=== PATIENT | male | born 1940 | race Caucasian/White ===

== ENCOUNTER 2017-04-03 07:29 | Inpatient (IN) | payer OTHER, BC ==
[~2017-04-03] VITALS: Ht 172.7 cm; Wt 79.4 kg
[~2017-04-03 07:29] MED LIST: ADVAIR 250/501 DISK PO; ASPIRIN81 M2 PO; AZOR 10/20 M1 TABLET PO; BLOOD PRESSURE PO; CIPRO500 MG PO; LEVAQUIN500 MG PO; MACROBID100 MG PO; NORVASC5 MG PO; PERCOCET 5/31 TABLET PO; PREDNISONE5 MG PO; PROAIR HFA8.5 GM IH; PROVENTIL2.5 MG/3 M IH; SPIRIVA1 INHALATI IH; THEO-DUR,THEOC300 MG PO
[2017-04-03 08:35] LABS: EOSINOPHIL (%) 0.1 % (0-5); HEMATOCRIT 42.2 % (38.0-50.0); IMMATURE GRANULOCYTE (%) 0.4 % (0.0-0.7); IMMATURE GRANULOCYTE COUNT 0.1 K/uL; INSTRUMENT ABS NEUTROPHIL CT 13.2 K/uL; LYMPHOCYTE COUNT 0.3 K/uL (1.0-2.8); MCHC 33.2 G/DL (30.0-36.0); MCV 84.4 FL (86-99); MEAN PLAT.VOLUME 10.7 uM^3 (9.0-12.4); MONOCYTE (%) 1.9 % (3-12); MONOCYTE COUNT 0.3 K/uL (0-0.8); NEUTROPHIL (%) 95.7 % (45-76); NEUTROPHIL COUNT 13.2 K/uL (1.8-6.4); PLATELET COUNT 232 K/uL (156-360); RBC DIS.WIDTH-CV 15.2 % (11.8-14.6); RBC DIS.WIDTH-SD 46.4 % (39-53); WHITE BLOOD COUNT 13.8 K/uL (4.1-10.2)
[2017-04-03 08:46] LABS: CHLORIDE 107 mEq/L (99-109); POTASSIUM 3.8 mEq/L (3.7-5.4); SODIUM 142 mEq/L (136-147)
[2017-04-03 08:47] LABS: GLUCOSE 112 mg/dL (70-99)
[2017-04-03 08:49] LABS: ANION GAP 10 MEQ/L (2-14)
[2017-04-03 08:51] LABS: GFR ESTIMATE (CALCULATED) > 59 mL/min/
[2017-04-03 08:52] LABS: UREA NITROGEN (BUN) 22 mg/dL (9-23)
[2017-04-03 08:55] LABS: TROP-I INTERPRETATION NEGATIVE; TROPONIN-I < 0.01 ng/mL (0.0-0.30)
[2017-04-03 09:39] LABS: ADD MIUA? YES; BILIRUBIN NEGATIVE; BLOOD SMALL; COLOR YELLOW ((YELLOW)); GLUCOSE (STRIP) NEGATIVE; KETONES NEGATIVE; LEUKOCYTES LARGE; NITRITE POSITIVE; PROTEIN (STRIP) NEGATIVE; SPECIFIC GRAVITY 1.012 (1.000-1.030); UROBILINOGEN 0.2 MG/DL (0.2-1.0)
[2017-04-03 09:52] LABS: BACTERIA 3+ /HPF; CALCIUM OXALATE CRYSTALS 1+ /HPF; EPITHELIAL CELLS RARE /HPF; MUCUS TRACE /LPF; UCUL ADDED? YES; WHITE BLOOD CELLS TNTC /HPF (0-5)
[2017-04-03] MEDS ORDERED: SPIRIVA1 INHALATI IH (12:05)
[2017-04-03 18:40] VITALS: BP 134/77
[2017-04-03 19:34] VITALS: BP 114/61
[2017-04-03 22:00] VITALS: BP 91/56; BP 97/65
[2017-04-03 23:00] VITALS: BP 90/55
[2017-04-03 23:59] LABS: METH RESISTANT S AUREUS PCR NEGATIVE (NEGATIVE)
[2017-04-04] VITALS (12 sets, daily range): BP systolic 83–120; BP diastolic 41–62
[2017-04-04 00:20] LABS: PROBE CHECK PASS; SPECIMEN PROCESSING CONTROL PASS
[2017-04-04 01:20] LABS: POINT-OF-CARE METER ID UU13113803
[2017-04-04 06:03] LABS: POINT-OF-CARE METER ID UU14174217
[2017-04-04 06:51] LABS: ANION GAP 8 MEQ/L (2-14); CHLORIDE 108 MEQ/L (99-109); HEMATOCRIT 36.1 % (38.0-50.0); MAGNESIUM 1.8 mg/dl (1.3-2.7); MCH 28.3 PG (29.0-34.0); POTASSIUM 4.1 MEQ/L (3.7-5.4); RBC DIS.WIDTH-CV 16.2 % (11.8-14.6); RBC DIS.WIDTH-SD 50.4 % (39-53); SAMPLE HEMOLYSIS CHECK 0; SAMPLE ICTERIC CHECK 0; SAMPLE LIPEMIA CHECK 0; SODIUM 142 MEQ/L (136-147); TOTAL BILIRUBIN 1.3 MG/DL (0.0-1.0); WHITE BLOOD COUNT 14.3 K/uL (4.1-10.2)
[2017-04-04 06:57] LABS: ALKALINE PHOSPHATASE 63 IU/L (3-129); GFR ESTIMATE (CALCULATED) 53 mL/min/; GLUCOSE 143 mg/dL (70-99); UREA NITROGEN (BUN) 32 mg/dL (9-23)
[2017-04-04 07:11] LABS: EOSINOPHIL (%) 0 % (0-5); IMMATURE GRANULOCYTE (%) 0.6 % (0.0-0.7); IMMATURE GRANULOCYTE COUNT 0.1 K/uL; INSTRUMENT ABS NEUTROPHIL CT 13.2 K/uL; LYMPHOCYTE COUNT 0.6 K/uL (1.0-2.8); MEAN PLAT.VOLUME 11.1 uM^3 (9.0-12.4); MONOCYTE (%) 2.9 % (3-12); MONOCYTE COUNT 0.4 K/uL (0-0.8); NEUTROPHIL (%) 92.5 % (45-76); NEUTROPHIL COUNT 13.2 K/uL (1.8-6.4)
[2017-04-04 07:12] LABS: PLAT.SUFFICIENCY DECREASED
[2017-04-04 07:13] LABS: PLATELET COUNT 148 K/uL (156-360)
[2017-04-04 12:21] LABS: POINT-OF-CARE METER ID UU13113731
[2017-04-05] VITALS: BP 110/57
[2017-04-05 04:00] VITALS: BP 119/58
[2017-04-05 07:21] LABS: POINT-OF-CARE METER ID UU14174217
[2017-04-05 08:00] VITALS: BP 129/78
[2017-04-05 12:00] VITALS: BP 150/81; BP 151/80
[2017-04-05 12:23] LABS: POINT-OF-CARE METER ID UU14174217
[2017-04-05 14:20] VITALS: BP 150/80
[2017-04-05 22:51] VITALS: BP 164/89
[2017-04-06 06:33] LABS: HEMATOCRIT 34.3 % (38.0-50.0); MCH 28.2 PG (29.0-34.0); MCHC 33.8 G/DL (30.0-36.0); MCV 83.5 FL (86-99); MEAN PLAT.VOLUME 11.3 uM^3 (9.0-12.4); PLATELET COUNT 156 K/uL (156-360); RBC DIS.WIDTH-SD 49.1 % (39-53); RED BLOOD COUNT 4.11 M/uL (4.00-5.50); WHITE BLOOD COUNT 9.1 K/uL (4.1-10.2)
[2017-04-06 07:03] LABS: ANION GAP 8 MEQ/L (2-14); CHLORIDE 109 MEQ/L (99-109); GFR ESTIMATE (CALCULATED) > 59 mL/min/; MAGNESIUM 1.6 mg/dl (1.3-2.7); POTASSIUM 3.7 MEQ/L (3.7-5.4); SAMPLE HEMOLYSIS CHECK 0; SAMPLE ICTERIC CHECK 0; SAMPLE LIPEMIA CHECK 0; SODIUM 144 MEQ/L (136-147); UREA NITROGEN (BUN) 24 mg/dL (9-23)
[2017-04-06 07:04] LABS: GLUCOSE 93 mg/dL (70-99)
[2017-04-06 07:21] VITALS: BP 156/91
[2017-04-06] MEDS ORDERED: TAMSULOSIN HCL0.4 MG PO (11:19)
[2017-04-06] MEDS ORDERED: KEFLEX500 MG PO (11:20)
== END 2017-04-06 13:20 | disposition home or self-care (01) | DRG 872 ==
LOC: EME 07:29 → 5EAST 10:58 → 4WEST 10:58 → EDOF 10:58 → 5EAST 14:56 → 4WEST 21:45 → 5EAST 04-05 14:01
PROVIDERS: Emergency Medicine; Internal Medicine; Obstetrics & Gynecology
DX: A41.51 Sepsis due to Escherichia coli [E. coli] (principal); N13.6 Pyonephrosis; J45.902 Unspecified asthma with status asthmaticus; J44.9 Chronic obstructive pulmonary disease, unspecified; I10 Essential (primary) hypertension; B96.20 Unspecified Escherichia coli [E. coli] as the cause of diseases classified elsewhere; E78.5 Hyperlipidemia, unspecified; N20.0 Calculus of kidney; I71.4 Abdominal aortic aneurysm, without rupture; R00.0 Tachycardia, unspecified; R32 Unspecified urinary incontinence; R73.9 Hyperglycemia, unspecified; K76.89 Other specified diseases of liver; Z85.46 Personal history of malignant neoplasm of prostate; Z87.891 Personal history of nicotine dependence; Z88.0 Allergy status to penicillin; Z09 Encounter for follow-up examination after completed treatment for conditions other than malignant neoplasm; Z88.2 Allergy status to sulfonamides; Z80.9 Family history of malignant neoplasm, unspecified
CPT/HCPCS: 71010; 74176; 80048; 80053; 81003; 82948; 83605; 83735; 84100; 84484; 85025; 85027; 87040; 87077; 87086; 87186; 87641; 87801; 93005; 94640; 94640 76; 94799; 99202; 99281; 99285; C1769; C1876; J0131; J0692; J1100; J1815; J1885; J2250; J2270; J2405; J3010; J7030; J7042; J7050; J7120; S0028

== ENCOUNTER 2017-10-25 10:33 | Inpatient (IN) | payer OTHER, BC ==
[~2017-10-25] VITALS: Ht 172.7 cm; Wt 66.8 kg
[~2017-10-25 10:33] MED LIST changes: +KEFLEX500 MG PO; +TAMSULOSIN HCL0.4 MG PO
[2017-10-25 10:57] LABS: HEMATOCRIT 44.2 % (38.0-50.0); MCH 27.2 PG (29.0-34.0); MCHC 32.8 G/DL (30.0-36.0); MCV 82.8 FL (86-99); MEAN PLAT.VOLUME 10.6 uM^3 (9.0-12.4); PLATELET COUNT 301 K/uL (156-360); RBC DIS.WIDTH-CV 15.5 % (11.8-14.6); RBC DIS.WIDTH-SD 46.9 % (39-53); RED BLOOD COUNT 5.34 M/uL (4.00-5.50); WHITE BLOOD COUNT 8.4 K/uL (4.1-10.2)
[2017-10-25 11:08] LABS: CHLORIDE 101 mEq/L (99-109); POTASSIUM 3.4 mEq/L (3.7-5.4); SODIUM 141 mEq/L (136-147)
[2017-10-25 11:09] LABS: GLUCOSE 116 mg/dL (70-99)
[2017-10-25 11:11] LABS: ANION GAP 13 MEQ/L (2-14)
[2017-10-25 11:13] LABS: GFR ESTIMATE (CALCULATED) > 59 mL/min/
[2017-10-25 11:14] LABS: UREA NITROGEN (BUN) 13 mg/dL (9-23)
[2017-10-25 11:50] LABS: TOTAL BILIRUBIN 0.8 mg/dL (0.0-1.0)
[2017-10-25 11:51] LABS: ALKALINE PHOSPHATASE 114 IU/L (3-129)
[2017-10-25 11:53] LABS: DIRECT BILIRUBIN 0.3 mg/dL (0.0-0.3); TROP-I INTERPRETATION NEGATIVE; TROPONIN-I < 0.01 ng/mL (0.0-0.30)
[2017-10-25 12:27] LABS: BASE EXCESS 2.8 mEq/L (-3 to +3); BICARBONATE 26.1 mEq/L (22-26); CARBOXY HGB 2.1 % (0-5); METHEMOGLOBIN 0.7 % (0-1.5); PCO2 35 mm Hg (35-45); PO2 58 mm Hg (80-100); pH 7.48 (7.35-7.45)
[2017-10-25 12:28] LABS: COMMENTS - BLOOD GASES A+C+; FI02 0.21 %; SITE LR; TOTAL RESP RATE 24 resp/min
[2017-10-25] MEDS ORDERED: ZITHROMAX250 MG PO (14:07)
[2017-10-25 15:48] VITALS: BP 155/66
[2017-10-25 19:50] VITALS: BP 126/77
[2017-10-26 00:21] VITALS: BP 139/79
[2017-10-26 03:37] VITALS: BP 146/76
[2017-10-26 07:04] LABS: ANION GAP 9 MEQ/L (2-14); CHLORIDE 106 MEQ/L (99-109); GFR ESTIMATE (CALCULATED) > 59 mL/min/; GLUCOSE 141 mg/dL (70-99); SAMPLE HEMOLYSIS CHECK 0; SAMPLE ICTERIC CHECK 0; SAMPLE LIPEMIA CHECK 0; SODIUM 141 MEQ/L (136-147); UREA NITROGEN (BUN) 18 mg/dL (9-23)
[2017-10-26 08:35] VITALS: BP 153/78
[2017-10-26 15:27] VITALS: BP 115/64; BP 123/63
[2017-10-26 19:15] VITALS: BP 129/75
[2017-10-27 00:10] VITALS: BP 133/75
[2017-10-27 03:10] VITALS: BP 148/76
[2017-10-27 06:29] LABS: EOSINOPHIL (%) 0 % (0-5); HEMATOCRIT 40.1 % (38.0-50.0); IMMATURE GRANULOCYTE (%) 0.4 % (0.0-0.7); IMMATURE GRANULOCYTE COUNT 0.1 K/uL; INSTRUMENT ABS NEUTROPHIL CT 10.3 K/uL; LYMPHOCYTE COUNT 0.7 K/uL (1.0-2.8); MCH 27.5 PG (29.0-34.0); MCHC 32.7 G/DL (30.0-36.0); MCV 84.1 FL (86-99); MONOCYTE (%) 3.5 % (3-12); MONOCYTE COUNT 0.4 K/uL (0-0.8); NEUTROPHIL (%) 90.1 % (45-76); NEUTROPHIL COUNT 10.3 K/uL (1.8-6.4); PLATELET COUNT 314 K/uL (156-360); RBC DIS.WIDTH-CV 16.2 % (11.8-14.6); RBC DIS.WIDTH-SD 50.1 % (39-53); RED BLOOD COUNT 4.77 M/uL (4.00-5.50); WHITE BLOOD COUNT 11.5 K/uL (4.1-10.2)
[2017-10-27 07:10] LABS: ALKALINE PHOSPHATASE 90 IU/L (3-129); ANION GAP 10 MEQ/L (2-14); CHLORIDE 106 MEQ/L (99-109); GFR ESTIMATE (CALCULATED) > 59 mL/min/; GLUCOSE 132 mg/dL (70-99); POTASSIUM 4.2 MEQ/L (3.7-5.4); SAMPLE HEMOLYSIS CHECK 0; SAMPLE ICTERIC CHECK 0; SAMPLE LIPEMIA CHECK 0; SODIUM 143 MEQ/L (136-147); TOTAL BILIRUBIN 0.5 MG/DL (0.0-1.0); UREA NITROGEN (BUN) 24 mg/dL (9-23)
[2017-10-27 07:47] VITALS: BP 139/77
[2017-10-27] MEDS ORDERED: PREDNISONE10 MG PO (11:32)
[2017-10-27] MEDS ORDERED: LEVAQUIN750 MG PO (11:32)
[2017-10-27] MEDS ORDERED: SPIRIVA RESPIMAT4 GM IH (11:32)
[2017-10-27 11:53] VITALS: BP 133/73
== END 2017-10-27 18:13 | disposition home health service (06) | DRG 190 ==
LOC: EME 10:33 → 5SOUTH 13:56 → EDOF 13:56 → ENRESERV 14:07 → 5SOUTH 15:21
PROVIDERS: Emergency Medicine; Hospitalist; Physician Assistant
DX: J44.1 Chronic obstructive pulmonary disease with (acute) exacerbation (principal); J96.01 Acute respiratory failure with hypoxia; J44.0 Chronic obstructive pulmonary disease with (acute) lower respiratory infection; J15.9 Unspecified bacterial pneumonia; E87.2 Acidosis; E87.6 Hypokalemia; I10 Essential (primary) hypertension; E78.5 Hyperlipidemia, unspecified; I49.3 Ventricular premature depolarization; I71.4 Abdominal aortic aneurysm, without rupture; R32 Unspecified urinary incontinence; Z79.82 Long term (current) use of aspirin; Z87.891 Personal history of nicotine dependence; Z23 Encounter for immunization; Z88.2 Allergy status to sulfonamides; Z88.0 Allergy status to penicillin; Z85.46 Personal history of malignant neoplasm of prostate
CPT/HCPCS: 36600; 71020; 80048; 80053; 80076; 82803; 83605; 83880; 84484; 85025; 85027; 87040; 87070; 87077; 87186; 87205; 87449; 87502; 87801; 90686; 93005; 94640; 94640 76; 94644; 94760; 94799; 99202; 99281; 99285; J0692; J0696; J1650; J2920; J2930; J7030; J7040

== ENCOUNTER → 2017-11-16 | Outpatient (CLI) | payer OTHER, BC ==
[~2017-11-16] MED LIST changes: +LEVAQUIN750 MG PO; +PREDNISONE10 MG PO; +SPIRIVA RESPIMAT4 GM IH; +ZITHROMAX250 MG PO
[2017-11-16 12:54] LABS: TYPE OF FLUID THORACENTESIS
[2017-11-16 13:36] LABS: BODY FLUID LDH 310 IU/L
[2017-11-16 13:44] LABS: BODY FLUID EOSINOPHILS 1 % (0-25); BODY FLUID RBC'S 26000 /MM^3 (0-100); BODY FLUID WBC'S 374 /MM^3 (0-500); MONONUCLEAR WBC'S 91 %; POLYNUCLEAR WBC'S 8 % (0-25)
== END | disposition home or self-care (01) ==
LOC: RAD 11:00 → EDSTATUS 11:00 → RAD 11:28
PROVIDERS: Internal Medicine Pulmonary Disease
PROC: 0W993ZZ Drainage of Right Pleural Cavity, Percutaneous Approach (ICD-10-PCS; principal; 2017-11-16)
DX: J90 Pleural effusion, not elsewhere classified (principal)
CPT/HCPCS: 76942; 82945; 83615 91; 84157; 87075; 87205; 89051

== ENCOUNTER 2017-11-27 12:10 | Inpatient (IN) | payer OTHER, BC ==
[~2017-11-27] VITALS: Ht 172.7 cm; Wt 62.0 kg
[~2017-11-27 12:10] MED LIST changes: +PROVENTIL,2.5 MG/3 M IH; -PROVENTIL2.5 MG/3 M IH
[2017-11-27 14:09] LABS: HEMATOCRIT 40.7 % (38.0-50.0); MCH 26.8 PG (29.0-34.0); MCHC 33.2 G/DL (30.0-36.0); MCV 80.8 FL (86-99); PLATELET COUNT 360 K/uL (156-360); RBC DIS.WIDTH-CV 14.8 % (11.8-14.6); RBC DIS.WIDTH-SD 43.8 % (39-53); RED BLOOD COUNT 5.04 M/uL (4.00-5.50); WHITE BLOOD COUNT 7.8 K/uL (4.1-10.2)
[2017-11-27 14:10] LABS: HEMOGLOBIN 13.5 G/DL (12.5-16.6)
[2017-11-27 14:21] LABS: CHLORIDE 101 mEq/L (99-109); POTASSIUM 3.7 mEq/L (3.7-5.4); SODIUM 138 mEq/L (136-147)
[2017-11-27 14:23] LABS: GLUCOSE 142 mg/dL (70-99)
[2017-11-27 14:27] LABS: CREATININE 0.9 mg/dL (0.6-1.3); GFR ESTIMATE (CALCULATED) > 59 mL/min/ (58.99-99999)
[2017-11-27 14:28] LABS: UREA NITROGEN (BUN) 18 mg/dL (9-23)
[2017-11-27 14:30] LABS: TROP-I INTERPRETATION NEGATIVE; TROPONIN-I 0.01 ng/mL (0.0-0.30)
[2017-11-27] MEDS ORDERED: SPIRIVA RESPIMAT4 GM IH (15:13)
[2017-11-27 17:57] LABS: TYPE OF FLUID THORACENTESIS
[2017-11-27 18:21] VITALS: BP 129/80
[2017-11-27 18:23] LABS: APPEARANCE CLOUDY-BLOODY; BODY FLUID RBC'S 77000 /MM^3 (0-100); BODY FLUID WBC'S 496 /MM^3 (0-500)
[2017-11-27 18:26] LABS: BODY FLUID GLUCOSE 106 MG/DL; BODY FLUID LDH 245 IU/L; BODY FLUID PROTEIN 3.9 G/DL
[2017-11-27 18:32] LABS: INTER. NORMALIZED RATIO 1.2
[2017-11-27 18:35] LABS: PTT 29.4 SEC (25-37)
[2017-11-27 19:55] LABS: BODY FLUID EOSINOPHILS 2 % (0-25); MONONUCLEAR WBC'S 85 %; POLYNUCLEAR WBC'S 13 % (0-25)
[2017-11-27 23:18] VITALS: BP 118/78
[2017-11-28 03:37] VITALS: BP 129/75
[2017-11-28 07:24] LABS: HEMOGLOBIN 12.6 G/DL (12.5-16.6); MCH 26.8 PG (29.0-34.0); MCHC 33.2 G/DL (30.0-36.0); MCV 80.9 FL (86-99); PLATELET COUNT 358 K/uL (156-360); RBC DIS.WIDTH-CV 14.6 % (11.8-14.6); RBC DIS.WIDTH-SD 43.2 % (39-53); WHITE BLOOD COUNT 8.4 K/uL (4.1-10.2)
[2017-11-28 07:51] LABS: CHLORIDE 100 MEQ/L (99-109); CREATININE 0.9 MG/DL (0.6-1.3); GFR ESTIMATE (CALCULATED) > 59 mL/min/ (58.99-99999); POTASSIUM 4.1 MEQ/L (3.7-5.4); SODIUM 138 MEQ/L (136-147); UREA NITROGEN (BUN) 23 mg/dL (9-23)
[2017-11-28 07:52] VITALS: BP 144/74
[2017-11-28 07:52] LABS: GLUCOSE 216 mg/dL (70-99)
[2017-11-28 12:16] VITALS: BP 136/70
[2017-11-28 15:12] VITALS: BP 124/78
[2017-11-28 19:16] VITALS: BP 119/74
[2017-11-28 23:19] VITALS: BP 100/65
[2017-11-29 03:46] VITALS: BP 121/68
[2017-11-29 07:25] VITALS: BP 134/83
[2017-11-29 15:50] VITALS: BP 133/79
[2017-11-29 18:49] VITALS: BP 132/79
[2017-11-30 00:26] VITALS: BP 129/70
[2017-11-30 06:30] LABS: HEMATOCRIT 38.7 % (38.0-50.0); HEMOGLOBIN 12.4 G/DL (12.5-16.6); MCV 81.1 FL (86-99); PLATELET COUNT 364 K/uL (156-360); RBC DIS.WIDTH-CV 14.8 % (11.8-14.6); RBC DIS.WIDTH-SD 44.1 % (39-53); RED BLOOD COUNT 4.77 M/uL (4.00-5.50)
[2017-11-30 07:12] LABS: CHLORIDE 101 MEQ/L (99-109); CREATININE 0.8 MG/DL (0.6-1.3); GFR ESTIMATE (CALCULATED) > 59 mL/min/ (58.99-99999); POTASSIUM 4.2 MEQ/L (3.7-5.4); SODIUM 141 MEQ/L (136-147); UREA NITROGEN (BUN) 15 mg/dL (9-23)
[2017-11-30 07:20] LABS: GLUCOSE 88 mg/dL (70-99)
[2017-11-30 07:55] VITALS: BP 139/78
[2017-11-30 15:29] VITALS: BP 118/71
[2017-12-01 00:44] VITALS: BP 127/87
[2017-12-01 07:15] VITALS: BP 131/80
[2017-12-01 23:00] VITALS: BP 129/70
[2017-12-02 06:20] LABS: BASOPHIL (%) 0.6 % (0-1); BASOPHIL COUNT 0.1 K/uL (0-0.1); EOSINOPHIL (%) 4.5 % (0-5); EOSINOPHIL COUNT 0.4 K/uL (0-0.3); HEMATOCRIT 37.8 % (38.0-50.0); HEMOGLOBIN 12.3 G/DL (12.5-16.6); IMMATURE GRANULOCYTE (%) 0.5 % (0.0-0.7); LYMPHOCYTE (%) 21.2 % (15-42); LYMPHOCYTE COUNT 1.6 K/uL (1.0-2.8); MCH 26.9 PG (29.0-34.0); MCHC 32.5 G/DL (30.0-36.0); MCV 82.7 FL (86-99); MONOCYTE (%) 8.2 % (3-12); MONOCYTE COUNT 0.6 K/uL (0-0.8); PLATELET COUNT 336 K/uL (156-360); RBC DIS.WIDTH-SD 45.5 % (39-53); RED BLOOD COUNT 4.57 M/uL (4.00-5.50); WHITE BLOOD COUNT 7.7 K/uL (4.1-10.2)
[2017-12-02 06:46] LABS: ALBUMIN 2.9 G/DL (3.2-4.8); ALKALINE PHOSPHATASE 75 IU/L (3-129); ALT (GPT) 18 IU/L (3-49); AST (GOT) 16 IU/L (2-34); CHLORIDE 103 MEQ/L (99-109); CREATININE 0.9 MG/DL (0.6-1.3); GFR ESTIMATE (CALCULATED) > 59 mL/min/ (58.99-99999); GLUCOSE 97 mg/dL (70-99); POTASSIUM 3.8 MEQ/L (3.7-5.4); SODIUM 142 MEQ/L (136-147); TOTAL BILIRUBIN 0.4 MG/DL (0.0-1.0); TOTAL PROTEIN 5.5 G/DL (6.4-8.3); UREA NITROGEN (BUN) 24 mg/dL (9-23)
[2017-12-02 08:32] VITALS: BP 133/80
[2017-12-02 15:56] VITALS: BP 121/78
[2017-12-02 23:15] VITALS: BP 132/76
[2017-12-03 07:30] VITALS: BP 146/85
[2017-12-03] MEDS ORDERED: PREDNISONE10 MG PO (12:33)
[2017-12-03] MEDS ORDERED: CALCIUM 500 MG1 EACH PO (12:34)
== END 2017-12-03 15:44 | disposition home health service (06) | DRG 180 ==
LOC: EME 12:10 → 2EAST 16:18 → EDOF 16:18 → ENRESERV 16:19 → 2EAST 18:11 → ENPENDDIS 12-03 → 2EAST 12-03 15:44
PROVIDERS: Emergency Medicine; Hospitalist; Internal Medicine
PROC: 0W993ZZ Drainage of Right Pleural Cavity, Percutaneous Approach (ICD-10-PCS; principal; 2017-11-27)
PROC: 0DBP8ZX Excision of Rectum, Via Natural or Artificial Opening Endoscopic, Diagnostic (ICD-10-PCS; 2017-12-01)
PROC: 0W9930Z Drainage of Right Pleural Cavity with Drainage Device, Percutaneous Approach (ICD-10-PCS; 2017-12-01)
DX: C34.90 Malignant neoplasm of unspecified part of unspecified bronchus or lung (principal); J91.0 Malignant pleural effusion; J98.11 Atelectasis; R59.0 Localized enlarged lymph nodes; J96.21 Acute and chronic respiratory failure with hypoxia; J44.1 Chronic obstructive pulmonary disease with (acute) exacerbation; D12.8 Benign neoplasm of rectum; E78.5 Hyperlipidemia, unspecified; I10 Essential (primary) hypertension; I71.4 Abdominal aortic aneurysm, without rupture; Z85.46 Personal history of malignant neoplasm of prostate; Z87.891 Personal history of nicotine dependence; Z99.81 Dependence on supplemental oxygen; Z79.82 Long term (current) use of aspirin; Z88.0 Allergy status to penicillin; Z88.2 Allergy status to sulfonamides; Z80.0 Family history of malignant neoplasm of digestive organs
CPT/HCPCS: 49405; 70553; 71010; 71020; 71045; 71046; 71260; 74177; 76942; 80048; 80053; 80198; 82945; 83605; 83615 91; 83986 90; 84157; 84484; 85025; 85027; 85610; 85730; 87040; 87070; 87075; 87205; 88108; 88305; 89051; 93005; 94640; 94640 76; 94799; 99202; 99281; 99285; J1100; J1644; J3010; J7512; J7644

== ENCOUNTER → 2017-12-17 | Outpatient (CLI) | payer OTHER, BC ==
[~2017-12-17] MED LIST changes: +CALCIUM 500 MG1 EACH PO
== END | disposition home or self-care (01) ==
LOC: RAD 13:30
PROC: 0WP930Z Removal of Drainage Device from Right Pleural Cavity, Percutaneous Approach (ICD-10-PCS; principal; 2017-12-17)
DX: J90 Pleural effusion, not elsewhere classified (principal)
CPT/HCPCS: 32552

== ENCOUNTER → 2017-12-22 | Outpatient (CLI) | payer OTHER, BC ==
[~2017-12-22] MED LIST changes: +LO-DOSE ASPIRIN81 M1 PO; +NORCO 5/3251 TABLET PO
== END | disposition home or self-care (01) ==
LOC: RAD 10:40 → EDSTATUS 11:00
PROC: 0W993ZZ Drainage of Right Pleural Cavity, Percutaneous Approach (ICD-10-PCS; principal; 2017-12-22)
DX: J90 Pleural effusion, not elsewhere classified (principal)
CPT/HCPCS: 76942

== ENCOUNTER 2017-12-25 14:28 | Day surgery (SDC) | payer OTHER, BC ==
[~2017-12-25] VITALS: Ht 172.7 cm; Wt 62.1 kg
[~2017-12-25 14:28] MED LIST changes: -NORCO 5/3251 TABLET PO
[2017-12-25 14:55] VITALS: BP 144/87
[2017-12-25] MEDS ORDERED: NORCO 5/3251 TABLET PO (17:44)
[2017-12-25 18:30] VITALS: BP 170/87
[2017-12-25 19:00] VITALS: BP 159/86
== END 2017-12-25 19:15 | disposition home or self-care (01) ==
LOC: SDC 14:28
DX: I87.8 Other specified disorders of veins (principal); C34.90 Malignant neoplasm of unspecified part of unspecified bronchus or lung; C20 Malignant neoplasm of rectum; I71.4 Abdominal aortic aneurysm, without rupture; Z85.46 Personal history of malignant neoplasm of prostate; I10 Essential (primary) hypertension; J44.9 Chronic obstructive pulmonary disease, unspecified
CPT/HCPCS: 71045; C1751; J0690; J2250; J3010

== ENCOUNTER 2018-01-18 17:46 | Emergency (ER) | payer OTHER, BC ==
[~2018-01-18] VITALS: Ht 172.7 cm; Wt 60.9 kg
[~2018-01-18 17:46] MED LIST changes: +NORCO 5/3251 TABLET PO
[2018-01-18 19:45] LABS: HEMATOCRIT 33.4 % (38.0-50.0); HEMOGLOBIN 11.4 G/DL (12.5-16.6); MCH 26.6 PG (29.0-34.0); MCHC 34.1 G/DL (30.0-36.0); MCV 77.9 FL (86-99); PLATELET COUNT 173 K/uL (156-360); RBC DIS.WIDTH-SD 41.9 % (39-53); RED BLOOD COUNT 4.29 M/uL (4.00-5.50); WHITE BLOOD COUNT 17.5 K/uL (4.1-10.2)
[2018-01-18 20:00] LABS: APPEARANCE CLOUDY ((CLEAR)); BILIRUBIN NEGATIVE; BLOOD MODERATE; COLOR YELLOW ((YELLOW)); GLUCOSE (STRIP) NEGATIVE; KETONES NEGATIVE; LEUKOCYTES SMALL; NITRITE NEGATIVE; PROTEIN (STRIP) 30; SPECIFIC GRAVITY 1.012 (1.000-1.030); UROBILINOGEN 0.2 MG/DL (0.2-1.0)
[2018-01-18 20:12] LABS: ALBUMIN 3.4 G/DL (3.2-4.8); ALKALINE PHOSPHATASE 116 IU/L (3-129); ALT (GPT) 51 IU/L (3-49); AST (GOT) 24 IU/L (2-34); CHLORIDE 99 MEQ/L (99-109); CREATININE 0.9 MG/DL (0.6-1.3); DIRECT BILIRUBIN 0.1 mg/dL (0.0-0.3); GFR ESTIMATE (CALCULATED) > 59 mL/min/ (58.99-99999); GLUCOSE 94 mg/dL (70-99); POTASSIUM 3.2 MEQ/L (3.7-5.4); SODIUM 138 MEQ/L (136-147); TOTAL BILIRUBIN 0.5 MG/DL (0.0-1.0); TOTAL PROTEIN 6.4 G/DL (6.4-8.3); UREA NITROGEN (BUN) 13 mg/dL (9-23)
[2018-01-18 20:45] LABS: EPITHELIAL CELLS RARE /HPF; MUCUS TRACE /LPF
[2018-01-18 20:46] LABS: BACTERIA 4+ /HPF; RED BLOOD CELLS NONE SEEN /HPF (0-5); WHITE BLOOD CELLS TNTC /HPF (0-5)
[2018-01-18] MEDS ORDERED: KEFLEX500 MG PO (21:07)
[2018-01-18 21:32] VITALS: BP 125/74
== END 2018-01-18 21:33 | disposition home or self-care (01) ==
LOC: EME 17:46
PROVIDERS: Physician Assistant
PROC: 0T9B70Z Drainage of Bladder with Drainage Device, Via Natural or Artificial Opening (ICD-10-PCS; principal; 2018-01-18)
DX: N39.0 Urinary tract infection, site not specified (principal); B96.20 Unspecified Escherichia coli [E. coli] as the cause of diseases classified elsewhere; N20.0 Calculus of kidney; N28.89 Other specified disorders of kidney and ureter; I71.4 Abdominal aortic aneurysm, without rupture; J45.909 Unspecified asthma, uncomplicated; E78.5 Hyperlipidemia, unspecified; Z79.82 Long term (current) use of aspirin; Z87.891 Personal history of nicotine dependence; Z87.442 Personal history of urinary calculi; Z85.46 Personal history of malignant neoplasm of prostate; Z92.3 Personal history of irradiation; Z92.21 Personal history of antineoplastic chemotherapy; Z88.0 Allergy status to penicillin; Z88.2 Allergy status to sulfonamides
CPT/HCPCS: 74176; 80048; 80076; 81003; 85027; 87077; 87086; 87186; 99281; 99285; J0696

== ENCOUNTER 2018-03-12 16:34 | Inpatient (IN) | payer OTHER, BC ==
[~2018-03-12] VITALS: Ht 172.7 cm; Wt 63.2 kg
[~2018-03-12 16:34] MED LIST changes: -ADVAIR 250/501 DISK IH; -DECADRON4 M1 PO
[2018-03-12 16:58] LABS: HEMATOCRIT 36.1 % (38.0-50.0); HEMOGLOBIN 12.1 G/DL (12.5-16.6); MCH 29.1 PG (29.0-34.0); MCHC 33.5 G/DL (30.0-36.0); MCV 86.8 FL (86-99); PLATELET COUNT 159 K/uL (156-360); RBC DIS.WIDTH-CV 25.4 % (11.8-14.6); RBC DIS.WIDTH-SD 79.2 % (39-53); RED BLOOD COUNT 4.16 M/uL (4.00-5.50)
[2018-03-12 17:00] LABS: ALBUMIN 3.6 g/dL (3.2-4.8); CHLORIDE 100 mEq/L (99-109); POTASSIUM 4.2 mEq/L (3.7-5.4); SODIUM 137 mEq/L (136-147)
[2018-03-12 17:03] LABS: GLUCOSE 97 mg/dL (70-99); TOTAL PROTEIN 6.3 g/dL (6.4-8.3)
[2018-03-12 17:05] LABS: TOTAL BILIRUBIN 1.6 mg/dL (0.0-1.0)
[2018-03-12 17:06] LABS: ALKALINE PHOSPHATASE 142 IU/L (3-129)
[2018-03-12 17:07] LABS: CREATININE 0.7 mg/dL (0.6-1.3); GFR ESTIMATE (CALCULATED) > 59 mL/min/ (58.99-99999)
[2018-03-12 17:08] LABS: AST (GOT) 17 IU/L (2-34); UREA NITROGEN (BUN) 27 mg/dL (9-23)
[2018-03-12 17:09] LABS: ALT (GPT) 24 IU/L (3-49)
[2018-03-12] MEDS ORDERED: KEFLEX500 MG PO (17:14)
[2018-03-12] MEDS ORDERED: ADVAIR 250/501 DISK IH (17:15)
[2018-03-12] MEDS ORDERED: DECADRON4 M1 PO (17:16)
[2018-03-12 18:49] LABS: APPEARANCE SL.HAZY ((CLEAR)); BILIRUBIN NEGATIVE; BLOOD MODERATE; COLOR YELLOW ((YELLOW)); GLUCOSE (STRIP) NEGATIVE; KETONES NEGATIVE; LEUKOCYTES LARGE; NITRITE NEGATIVE; PROTEIN (STRIP) 30; SPECIFIC GRAVITY 1.045 (1.000-1.030); UROBILINOGEN 0.2 MG/DL (0.2-1.0)
[2018-03-12 19:46] LABS: EPITHELIAL CELLS RARE /HPF; MUCUS NONE SEEN /LPF; RED BLOOD CELLS 30-40 /HPF (0-5); WHITE BLOOD CELLS 40-50 /HPF (0-5)
[2018-03-12 19:47] LABS: BACTERIA 1+ /HPF; UCUL ADDED? YES
[2018-03-12 22:33] VITALS: BP 143/78
[2018-03-12 23:47] VITALS: BP 138/85
[2018-03-13 03:54] VITALS: BP 138/81
[2018-03-13 06:05] LABS: HEMATOCRIT 33.4 % (38.0-50.0); HEMOGLOBIN 10.6 G/DL (12.5-16.6); MCHC 31.7 G/DL (30.0-36.0); MCV 88.1 FL (86-99); PLATELET COUNT 148 K/uL (156-360); RBC DIS.WIDTH-CV 25.4 % (11.8-14.6); RBC DIS.WIDTH-SD 79.8 % (39-53); RED BLOOD COUNT 3.79 M/uL (4.00-5.50); WHITE BLOOD COUNT 13.9 K/uL (4.1-10.2)
[2018-03-13 06:29] LABS: CHLORIDE 104 MEQ/L (99-109); CREATININE 0.7 MG/DL (0.6-1.3); GFR ESTIMATE (CALCULATED) > 59 mL/min/ (58.99-99999); GLUCOSE 90 mg/dL (70-99); POTASSIUM 3.7 MEQ/L (3.7-5.4); SODIUM 138 MEQ/L (136-147); UREA NITROGEN (BUN) 24 mg/dL (9-23)
[2018-03-13 06:42] LABS: ABS NEUTROPHIL COUNT 12.2; ANISOCYTOSIS 1+; ATYPICAL LYMPHOCYTE 0.9 %; EOSINOPHIL ABS CT 0.1; EOSINOPHILS 0.9 % (0-5.0); LYMPHOCYTES 6.9 % (15.0-45.0); MONOCYTES 3.5 % (0-9.0); PLAT.SUFFICIENCY DECREASED; POLYCHROMASIA 1+; SEG.NEUTROPHILS 87.8 % (46.0-76.0)
[2018-03-13 07:36] VITALS: BP 151/92
[2018-03-13 11:59] VITALS: BP 139/78
[2018-03-13 16:04] VITALS: BP 141/90
[2018-03-13 19:51] VITALS: BP 135/78
[2018-03-14] VITALS (7 sets, daily range): BP systolic 127–147; BP diastolic 84–94
[2018-03-14 06:42] LABS: HEMATOCRIT 32.3 % (38.0-50.0); HEMOGLOBIN 10.8 G/DL (12.5-16.6); MCHC 33.4 G/DL (30.0-36.0); MCV 86.6 FL (86-99); PLATELET COUNT 111 K/uL (156-360); RBC DIS.WIDTH-SD 77.7 % (39-53); RED BLOOD COUNT 3.73 M/uL (4.00-5.50); WHITE BLOOD COUNT 6.9 K/uL (4.1-10.2)
[2018-03-14 06:48] LABS: CHLORIDE 103 MEQ/L (99-109); CREATININE 0.7 MG/DL (0.6-1.3); GFR ESTIMATE (CALCULATED) > 59 mL/min/ (58.99-99999); GLUCOSE 109 mg/dL (70-99); POTASSIUM 3.7 MEQ/L (3.7-5.4); SODIUM 136 MEQ/L (136-147); UREA NITROGEN (BUN) 20 mg/dL (9-23)
[2018-03-15 04:14] VITALS: BP 145/92
[2018-03-15 07:12] LABS: HEMATOCRIT 32.9 % (38.0-50.0); HEMOGLOBIN 10.6 G/DL (12.5-16.6); MCH 27.9 PG (29.0-34.0); MCHC 32.2 G/DL (30.0-36.0); MCV 86.6 FL (86-99); PLATELET COUNT 101 K/uL (156-360); RBC DIS.WIDTH-SD 77.4 % (39-53); WHITE BLOOD COUNT 7.9 K/uL (4.1-10.2)
[2018-03-15 07:17] VITALS: BP 143/80
[2018-03-15 11:30] VITALS: BP 137/79
[2018-03-15 15:46] VITALS: BP 146/87
[2018-03-15 19:55] VITALS: BP 132/77
[2018-03-16] VITALS (7 sets, daily range): BP systolic 121–175; BP diastolic 77–93
[2018-03-16 06:44] LABS: HEMOGLOBIN 9.7 G/DL (12.5-16.6); MCHC 32.3 G/DL (30.0-36.0); MCV 86.7 FL (86-99); PLATELET COUNT 76 K/uL (156-360); RBC DIS.WIDTH-CV 24.8 % (11.8-14.6); RBC DIS.WIDTH-SD 78.1 % (39-53); RED BLOOD COUNT 3.46 M/uL (4.00-5.50); WHITE BLOOD COUNT 5.9 K/uL (4.1-10.2)
[2018-03-16 07:05] LABS: CHLORIDE 104 MEQ/L (99-109); CREATININE 0.7 MG/DL (0.6-1.3); GFR ESTIMATE (CALCULATED) > 59 mL/min/ (58.99-99999); GLUCOSE 100 mg/dL (70-99); POTASSIUM 3.6 MEQ/L (3.7-5.4); SODIUM 137 MEQ/L (136-147); UREA NITROGEN (BUN) 19 mg/dL (9-23)
[2018-03-16 11:58] LABS: HEMATOCRIT 33.1 % (38.0-50.0); HEMOGLOBIN 10.6 G/DL (12.5-16.6); MCH 27.8 PG (29.0-34.0); MCV 86.9 FL (86-99); PLATELET COUNT 76 K/uL (156-360); RBC DIS.WIDTH-CV 24.7 % (11.8-14.6); RBC DIS.WIDTH-SD 77.3 % (39-53); RED BLOOD COUNT 3.81 M/uL (4.00-5.50); WHITE BLOOD COUNT 5.4 K/uL (4.1-10.2)
[2018-03-17 04:00] VITALS: BP 121/86
[2018-03-17 06:44] LABS: HEMATOCRIT 31.8 % (38.0-50.0); MCH 27.4 PG (29.0-34.0); MCHC 31.4 G/DL (30.0-36.0); MCV 87.1 FL (86-99); PLATELET COUNT 68 K/uL (156-360); RBC DIS.WIDTH-CV 24.6 % (11.8-14.6); RBC DIS.WIDTH-SD 76.5 % (39-53); RED BLOOD COUNT 3.65 M/uL (4.00-5.50); WHITE BLOOD COUNT 3.4 K/uL (4.1-10.2)
[2018-03-17 07:09] LABS: CHLORIDE 102 MEQ/L (99-109); CREATININE 0.7 MG/DL (0.6-1.3); GFR ESTIMATE (CALCULATED) > 59 mL/min/ (58.99-99999); GLUCOSE 106 mg/dL (70-99); POTASSIUM 3.6 MEQ/L (3.7-5.4); SODIUM 137 MEQ/L (136-147); UREA NITROGEN (BUN) 19 mg/dL (9-23)
[2018-03-17 07:48] VITALS: BP 125/80
[2018-03-17 12:00] VITALS: BP 138/73
[2018-03-17 15:29] VITALS: BP 131/81
[2018-03-17 22:45] VITALS: BP 131/71
[2018-03-17 23:50] VITALS: BP 131/71
[2018-03-18 03:41] VITALS: BP 122/73
[2018-03-18 06:37] LABS: HEMATOCRIT 30.9 % (38.0-50.0); HEMOGLOBIN 10.4 G/DL (12.5-16.6); MCH 28.9 PG (29.0-34.0); MCHC 33.7 G/DL (30.0-36.0); MCV 85.8 FL (86-99); PLATELET COUNT 60 K/uL (156-360); RBC DIS.WIDTH-CV 23.9 % (11.8-14.6); WHITE BLOOD COUNT 4.4 K/uL (4.1-10.2)
[2018-03-18 07:08] LABS: CHLORIDE 100 MEQ/L (99-109); CREATININE 0.6 MG/DL (0.6-1.3); GFR ESTIMATE (CALCULATED) > 59 mL/min/ (58.99-99999); GLUCOSE 132 mg/dL (70-99); POTASSIUM 4.3 MEQ/L (3.7-5.4); SODIUM 133 MEQ/L (136-147); UREA NITROGEN (BUN) 18 mg/dL (9-23)
[2018-03-18 08:22] VITALS: BP 120/70
[2018-03-18 11:16] VITALS: BP 122/78
[2018-03-18 17:53] VITALS: BP 154/80
[2018-03-18 20:02] VITALS: BP 128/73
[2018-03-19 01:42] VITALS: BP 135/92
[2018-03-19 04:45] VITALS: BP 149/88
[2018-03-19 07:30] VITALS: BP 130/70
[2018-03-19 10:25] LABS: HEMOGLOBIN 10.2 G/DL (12.5-16.6); MCH 28.2 PG (29.0-34.0); MCHC 31.9 G/DL (30.0-36.0); MCV 88.4 FL (86-99); PLATELET COUNT 73 K/uL (156-360); RBC DIS.WIDTH-CV 24.8 % (11.8-14.6); RBC DIS.WIDTH-SD 77.6 % (39-53); RED BLOOD COUNT 3.62 M/uL (4.00-5.50); WHITE BLOOD COUNT 5.7 K/uL (4.1-10.2)
[2018-03-19 10:47] LABS: CHLORIDE 103 MEQ/L (99-109); CREATININE 0.7 MG/DL (0.6-1.3); GFR ESTIMATE (CALCULATED) > 59 mL/min/ (58.99-99999); GLUCOSE 139 mg/dL (70-99); POTASSIUM 3.8 MEQ/L (3.7-5.4); SODIUM 138 MEQ/L (136-147); UREA NITROGEN (BUN) 16 mg/dL (9-23)
[2018-03-19 11:07] VITALS: BP 120/68
== END 2018-03-19 15:12 | disposition home or self-care (01) | DRG 663 ==
LOC: EME 16:34 → 5SOUTH 20:10 → EDOF 20:10 → ENRESERV 20:18 → 5SOUTH 21:56 → ENPENDDIS 03-19 14:21 → 5SOUTH 03-19 15:12
PROVIDERS: Emergency Medicine; Hospitalist; Physician Assistant; Physician Assistant Medical
PROC: 0T9B00Z Drainage of Bladder with Drainage Device, Open Approach (ICD-10-PCS; principal; 2018-03-17)
PROC: 0D1L0Z4 Bypass Transverse Colon to Cutaneous, Open Approach (ICD-10-PCS; principal; 2018-03-17)
DX: N36.0 Urethral fistula (principal); N39.0 Urinary tract infection, site not specified; N32.3 Diverticulum of bladder; C20 Malignant neoplasm of rectum; J91.0 Malignant pleural effusion; C34.90 Malignant neoplasm of unspecified part of unspecified bronchus or lung; J44.9 Chronic obstructive pulmonary disease, unspecified; K60.3 Anal fistula; I10 Essential (primary) hypertension; D69.6 Thrombocytopenia, unspecified; I71.4 Abdominal aortic aneurysm, without rupture; N20.0 Calculus of kidney; K76.9 Liver disease, unspecified; B96.20 Unspecified Escherichia coli [E. coli] as the cause of diseases classified elsewhere; R39.89 Other symptoms and signs involving the genitourinary system; E87.6 Hypokalemia; E78.5 Hyperlipidemia, unspecified; Z85.46 Personal history of malignant neoplasm of prostate; Z87.891 Personal history of nicotine dependence; Z87.442 Personal history of urinary calculi; Z85.118 Personal history of other malignant neoplasm of bronchus and lung; Z82.3 Family history of stroke; Z85.048 Personal history of other malignant neoplasm of rectum, rectosigmoid junction, and anus
CPT/HCPCS: 36415; 74177; 80048; 80053; 81003; 83605; 83735; 84100; 85014; 85018; 85025; 85027; 86850; 86900; 86901; 87040; 87077; 87086; 87186; 94640; 94640 76; 99202; 99281; 99285; C1751; C1769; J0131; J0330; J0696; J1100; J1170; J1335; J1644; J1956; J2250; J2405; J3010; J7030; J7050; S0030

== ENCOUNTER → 2018-03-12 | Outpatient (CLI) | payer OTHER, BC ==
[~2018-03-12] MED LIST changes: +ADVAIR 250/501 DISK IH; +DECADRON4 M1 PO
== END | disposition home or self-care (01) ==
LOC: RAD 14:53
DX: I71.4 Abdominal aortic aneurysm, without rupture (principal); N20.0 Calculus of kidney; K76.89 Other specified diseases of liver; M47.9 Spondylosis, unspecified; J90 Pleural effusion, not elsewhere classified; I70.90 Unspecified atherosclerosis; I25.10 Atherosclerotic heart disease of native coronary artery without angina pectoris; Z85.46 Personal history of malignant neoplasm of prostate
CPT/HCPCS: 74177

== ENCOUNTER 2018-06-28 09:31 | Emergency (ER) | payer OTHER, BC ==
[~2018-06-28] VITALS: Ht 172.7 cm; Wt 59.6 kg
[~2018-06-28 09:31] MED LIST changes: +ADVAIR 250/501 DISK IH; +DECADRON4 M1 PO
[2018-06-28 10:19] LABS: HEMATOCRIT 29.6 % (38.0-50.0); HEMOGLOBIN 10.2 G/DL (12.5-16.6); MCH 31.7 PG (29.0-34.0); MCHC 34.5 G/DL (30.0-36.0); MCV 91.9 FL (86-99); PLATELET COUNT 163 K/uL (156-360); RBC DIS.WIDTH-CV 24.3 % (11.8-14.6); RBC DIS.WIDTH-SD 80.9 % (39-53); RED BLOOD COUNT 3.22 M/uL (4.00-5.50); WHITE BLOOD COUNT 14.4 K/uL (4.1-10.2)
[2018-06-28 10:23] LABS: BASOPHIL (%) 0.1 % (0-1); EOSINOPHIL (%) 0.1 % (0-5); IMMATURE GRANULOCYTE (%) 0.8 % (0.0-0.7); LYMPHOCYTE (%) 5.2 % (15-42); LYMPHOCYTE COUNT 0.8 K/uL (1.0-2.8); MONOCYTE (%) 5.8 % (3-12); MONOCYTE COUNT 0.8 K/uL (0-0.8); NEUTROPHIL COUNT 12.7 K/uL (1.8-6.4)
[2018-06-28 10:31] LABS: ALBUMIN 3.5 g/dL (3.2-4.8); CHLORIDE 99 mEq/L (99-109); POTASSIUM 3.8 mEq/L (3.7-5.4); SODIUM 140 mEq/L (136-147)
[2018-06-28 10:33] LABS: GLUCOSE 86 mg/dL (70-99)
[2018-06-28 10:34] LABS: TOTAL PROTEIN 6.2 g/dL (6.4-8.3)
[2018-06-28 10:35] LABS: TOTAL BILIRUBIN 1.3 mg/dL (0.0-1.0)
[2018-06-28 10:37] LABS: ALKALINE PHOSPHATASE 85 IU/L (3-129); CREATININE 0.7 mg/dL (0.6-1.3); GFR ESTIMATE (CALCULATED) > 59 mL/min/ (58.99-99999)
[2018-06-28 10:38] LABS: UREA NITROGEN (BUN) 22 mg/dL (9-23)
[2018-06-28 10:39] LABS: AST (GOT) 16 IU/L (2-34)
[2018-06-28 10:40] LABS: ALT (GPT) 19 IU/L (3-49)
[2018-06-28 11:03] LABS: APPEARANCE CLOUDY ((CLEAR)); BILIRUBIN NEGATIVE; BLOOD MODERATE; COLOR YELLOW ((YELLOW)); GLUCOSE (STRIP) NEGATIVE; KETONES NEGATIVE; LEUKOCYTES LARGE; NITRITE NEGATIVE; PROTEIN (STRIP) 100; SPECIFIC GRAVITY 1.011 (1.000-1.030); UROBILINOGEN 0.2 MG/DL (0.2-1.0)
[2018-06-28 11:18] LABS: RED BLOOD CELLS 0-5 /HPF (0-5); WHITE BLOOD CELLS TNTC /HPF (0-5)
[2018-06-28 11:19] LABS: BACTERIA NONE SEEN /HPF; EPITHELIAL CELLS RARE /HPF; MUCUS NONE SEEN /LPF; UCUL ADDED? YES
[2018-06-28 19:07] VITALS: BP 138/95
== END 2018-06-28 19:08 | disposition short-term general hospital (02) ==
LOC: EME → EDBD 09:31 → EME 19:08
PROVIDERS: Emergency Medicine
DX: I71.4 Abdominal aortic aneurysm, without rupture (principal); N36.0 Urethral fistula; R32 Unspecified urinary incontinence; Z85.46 Personal history of malignant neoplasm of prostate; Z85.118 Personal history of other malignant neoplasm of bronchus and lung; Z85.038 Personal history of other malignant neoplasm of large intestine; Z87.440 Personal history of urinary (tract) infections; Z93.3 Colostomy status; I10 Essential (primary) hypertension; E78.5 Hyperlipidemia, unspecified; J45.909 Unspecified asthma, uncomplicated; Z92.21 Personal history of antineoplastic chemotherapy; Z88.2 Allergy status to sulfonamides; Z88.0 Allergy status to penicillin; Z87.891 Personal history of nicotine dependence
CPT/HCPCS: 74174; 74176; 80053; 81003; 83605; 85025; 87086; 99281; 99285; J1956; J7040